=== PATIENT | female | born 1975 | race Caucasian/White ===

== ENCOUNTER 2017-09-18 09:10 | Day surgery (SDC) | payer MEDICAID ==
[2017-09-17 15:48] LABS: HEMATOCRIT 38.7 % (36.0-48.0); HEMOGLOBIN 13.1 g/dL (12-16); MCH 30.8 pg (26.0-34.0); MCHC 33.9 g/dL (31.0-37.0); MCV 90.8 fL (80.0-100.0); MEAN PLATELET VOLUME 8.8 fL (7.4-10.4); RBC 4.26 10x6/uL (4.00-5.40); RDW 12.9 % (11.5-14.5); WBC 10.1 10x3/uL (4.8-10.8)
[2017-09-17 16:06] LABS: HCG URINE NEGATIVE (NEGATIVE)
[~2017-09-18] VITALS: Ht 149.9 cm; Wt 44.5 kg
--- NOTE | ~2017-09-18 | OP ---
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 REFERRING PHYSICIAN: Magalie Gardiner. SURGEON: Nicholas Moreno MD PROCEDURE: Anterior cervical discectomy and fusion at C5-C6 with removal of osteophytes, anterior cervical plate and screws, separate PEEK interbody cage, bone stem cell allograft. DESCRIPTION OF TECHNIQUE: After induction of general endotracheal anesthesia, the patient was positioned supine on the operating table. The neck was prepped and draped in usual sterile fashion. Fluoroscopic x-ray and Charlotte dissector localized the C5-C6 interspace. After infiltration of 1:100,000 epinephrine and 1% lidocaine, a transverse skin incision was carried out from the midline to the sternocleidomastoid muscle. The platysma was divided with Bovie cautery. Using blunt and sharp dissection with Metzenbaum scissors, I proceeded in avascular plane medial to the carotid sheath. The C5-C6 interspace was identified with fluoroscopic x-ray and spinal needle. The longus colli muscles were elevated from bodies of C5 and C6. Osteophytes were removed anteriorly with Adson rongeurs. Bellemont distracting pins were placed in the bodies of C5 and C6. Disc space was incised with #11 blade and series of curettes and pituitary rongeurs were used to remove the disc material and prepare the endplates at C5-C6. Next, a microscope and Midas Cornell drill were used to remove osteophytes posteriorly. The posterior longitudinal ligament was removed with Cloward rongeurs. Following this, the dura was decompressed well. A separate PEEK interbody cage was placed at C5-C6 interspace under distraction. Prior to this, it was filled with bone stem cell allograft. Next, a separate midline anterior cervical plate and screws was used to span the C5-C6 interspace. 16-mm screws were placed through the holes in the plate and then the locking cams were tightened down over the screw heads. Good position of the hardware was confirmed with fluoroscopic x-ray. Meticulous hemostasis was maintained throughout the wound. The wound was irrigated with copious amounts of Ancef irrigant solution. The platysma and subdermal layer closed with interrupted 3-0 Vicryl suture. The skin was reapproximated with Steri-Strips and benzoin. A sterile dressing was applied to the wound. The patient was awakened in good condition and taken to recovery. All counts were reported as correct. Estimated blood loss was minimal. TRANSINT:[id number] Voice Confirmation ID: [id number] DOCUMENT ID: [id number] OPERATIVE REPORT [id number] DRE JONES JOHN MD at 1710 CC: [id number] DICTATION DATE: 10/25/17 1857 BROADCAST TECHNICIAN: 10/26/17 [id number] [facility] 09/19/17 [id number] [place] [address]
[~2017-09-18 09:10] MED LIST: VALIUM 2 MG TAB2 MG PO
[2017-09-18] MEDS ORDERED: TOZAL SOFTGEL1 EACH (09:48)
[2017-09-18] MEDS ORDERED: MAGNESIUM OXID250 MG PO (09:49)
[2017-09-18] MEDS ORDERED: FIBER LAXATIVE500 MG (09:50)
[2017-09-18] MEDS ORDERED: ADVIL200 MG PO (09:51)
[2017-09-18 10:01] VITALS: BP 131/88; BMI 21.0
[2017-09-18 17:09] VITALS: BP 153/90; Ht 149.9 cm; Wt 44.5 kg
[2017-09-18 22:40] VITALS: BP 137/86
[2017-09-19 01:14] VITALS: BP 124/70
[2017-09-19 04:42] VITALS: BP 129/84
[2017-09-19 07:44] VITALS: BP 102/61
[2017-09-19 08:00] VITALS: BP 102/61
[2017-09-19] MEDS ORDERED: PERCOCET 10/3251 TA1 PO (08:40)
== END 2017-09-19 12:13 | disposition home or self-care (01) ==
LOC: D.OPS 09:10 → D.MS 09:10 → D.PAN 10:30 → D.OPS 11:15 → D.MS 16:55 → D.OPS 09-19 12:13
PROVIDERS: Anesthesiology
DX: M50.122 Cervical disc disorder at C5-C6 level with radiculopathy (principal); M25.78 Osteophyte, vertebrae; Z01.812 Encounter for preprocedural laboratory examination